=== PATIENT | male | born 1945 | race Two or more races ===

== ENCOUNTER → 2018-04-25 | Day surgery (SDC) | payer MEDICARE, OTHER ==
[~2018-04-25] MED LIST: ASPI81TA59 PO; ATORVASTATIN CA80 MG PO; BUDE10.2 IH; CARV6.252 PO; INSU100V13 SQ; IV RINGERS,LACTATED 1000ML 1,000 ML IV SCH; METF500T16 PO; MONT10TA9 PO; PROPOFOL 20 ML IV ONE; VENTOLIN HFA18 GM INH
--- NOTE | 2018-04-25 09:15 | PDOC1 ---
HISTORY & PHYSICAL H&P Larry Gutierrez. 1945 04/05/2018 01:40 PM 08/15 [facility] OUR PATIENTS COME FIRST [address] [place] [address]. [phone] Patient: Larry Gutierrez Date of : 1945 Date: 04/05/2018 1:40 PM Visit Type: Office Visit This 73 year old male presents for Anemia. History of Present Illness: 1. Anemia Type of anemia was acquired for deficiency anemia (iron deficient). Pertinent negatives include abdominal pain, anorexia, black tarry stools, bleeding gums, constipation, diarrhea, nausea, vomiting and weight loss. Additional information : Has low serum iron, and also has low mcv and hgb is around 9.8. PROBLEM LIST: Problem Description Onset Date Chronic Clinical Status Notes Obesity 06/29/2010 Y Mapped from [facility] Chronic Conditions table on 03/04/2014 by the ICD9 to SNOMED Bulk Mapping Utility. The mapped diagnosis code was Obesity, Unsp, 278.00, added by Marisabel Souza, with responsible provider Marisabel Souza. Onset date 06/29/2010; last addressed on 08/18/2012. Asthma 06/29/2010 Y Mapped from [facility] Chronic Conditions table on 03/04/2014 by the ICD9 to SNOMED Bulk Mapping Utility. The mapped diagnosis code was Asthma NOS, 493.90, added by Mraisabel Souza, with responsible provider Marisabel Souza. Onset date 06/29/2010; last addressed on 11/30/2013. Sleep apnea 06/29/2010 Y Mapped from [facility] Chronic Conditions table on 2013 by the ICD9 to SNOMED Bulk Mapping Utility. The mapped diagnosis code was Sleep Apnea, 780.57, added by Marisabel Souza, with responsible provider Marisabel Souza. Onset date 06/29/2010; last addressed on 11/13/2012. Hyperlipidemia 06/29/2010 Y Mapped from [facility] Chronic Conditions table on 2013 by the ICD9 to SNOMED Bulk Mapping Utility. The mapped diagnosis code was Hyperlipidemia NEC/NOS, 272.4, added by Marisabel Souza, with responsible provider Marisabel Souza. Onset date 06/29/2010; last addressed on 11/30/2013. Benign essential hypertension 06/29/2010 Y Mapped from [facility] Chronic Conditions table on 03/04/2014 by the ICD9 to SNOMED Bulk Mapping Utility. The mapped diagnosis code was Benign Hypertension, 401.1, added by Marisabel Souza, with responsible provider Marisabel Souza. Onset date 06/29/2010; last addressed on . Gastro-esophageal reflux disease with esophagitis 06/29/2010 Y Mapped from [facility] Chronic Conditions table on 03/04/2014 by the ICD9 to SNOMED Bulk Mapping Utility. The mapped diagnosis code was Reflux esophagitis, 530.11, added by Yadira Shepherd, with responsible provider . Onset date 06/29/2010; last addressed on 11/30/2013. Allergic rhinitis 06/29/2010 Y Mapped from [facility] Chronic Conditions table on by the ICD9 to SNOMED Bulk Mapping Utility. The mapped diagnosis code was Allergic rhinitis, cause unspecified, 477.9, added by Yadira Shepherd, with responsible provider . Onset date 06/29/2010; last addressed on 2013. Left lower quadrant pain 11/05/2015 Diverticulitis of large intestine without perforation or abscess without bleeding 11/05/2015 Acute diverticulitis 11/05/2015 Medicare annual wellness visit, initial 11/05/2015 Y Chronic midline low back pain without sciatica 04/05/2016 Coronary artery disease involving [place] coronary artery of [place] heart without angina pectoris 05/26/2015 Y Type II diabetes mellitus well controlled 06/29/2010 Y Mapped from [facility] Chronic Conditions table on 09/27/2014 by Salomón Coleman. The mapped diagnosis code was Diabetes Mellitus, Type II Contr,250.00, added by Marisabel Souza , with responsible provider Marisabel Souza. Onset date 06/29/2010; last addressed on . PAST MEDICAL/SURGICAL HISTORY (Detailed) Disease/disorder Onset Date Management Date Comments Hand surgery Hernia repair Tonsillectomy Allergies Asthma Bronchitis Diabetes GERD Hyperlipidemia Hypertension Obesity Sleep apnea C-PAP machine Family History (Detailed) Relationship Family Member Name Age at Condition Onset Age Cause of Father N CAD, DM, HTN N Mother N Coronary artery disease N Social History: (Detailed) The patient is right-handed. Preferred language is Polish. MARITAL STATUS/FAMILY/SOCIAL SUPPORT Currently . CHILDREN Has children: Tobacco use status: Never smoked tobacco. Smoking status: Never smoker. TOBACCO/VAPING EXPOSURE No passive smoke exposure. ALCOHOL There is no history of alcohol use. LIFESTYLE Moderate activity level. Never exercises. DIET vegetarian. HOME ENVIRONMENT/SAFETY The home has smoke detectors. Carbon monoxide detector at home. Uses seat belts. Medications (active prior to today) Medication Name Sig Description Start Date Stop Date Refilled Rx Elsewhere Fish Oil 1,000 mg capsule take by mouth twice daily // Y Aspir-81 81 mg tablet,delayed release take 1 tablet by oral route every day N LEVEMIR FLEXTOUCH 100UNIT/ML SOPN INJECT 15 UNITS UNDER THE SKIN IN THE MORNING 07/11/2017 07/11/2017 N atorvastatin 80 mg tablet take 1 tablet by oral route every day at bedtime 10/27/2017 N carvedilol 6.25 mg tablet take 1 tablet (6.25MG) by oral route 2 times every day with food 10/27/2017 10/27/2017 N pantoprazole 40 mg tablet,delayed release take 1 tab po qd for stomach 201710/27/2017 N Senna-S 8.6 mg-50 mg tablet take 2 tablet by oral route every day 10/27/2017 10/27/2017 N Symbicort 160 mcg-4.5 mcg/actuation HFA aerosol inhaler inhale 2 puff by inhalation route 2 times every day in the morning and evening.Rinse mouth after use. 10/27/2017 10/27/2017 N Zyrtec 10 mg tablet take 1 tablet by ORAL route every day at bedtime 201710/27/2017 N Flonase Allergy Relief 50 mcg/actuation nasal spray,suspension inhale 2 spray by intranasal route every day in each nostril 10/27/2017 N prednisone 10 mg tablet 3 daily in AM for 3 days,2 For 3days,1 for 3 days 2017 N METFORMIN HCL 500MG TABS TAKE ONE TABLET BY MOUTH TWICE A DAY WITH MORNING AND EVENING MEALS 11/22/2017 11/22/2017 N Ventolin HFA 90 mcg/actuation aerosol inhaler inhale 2 puff by inhalation route every 6 hours needed 11/25/2017 N BD PEN NEEDLE REZA 32G X 4 MM MISC USE WITH LANTUS SOLOSTAR ONCE DAILY 201701/24/2018 N SINGULAIR 10MG TABS TAKE ONE TABLET BY MOUTH EVERY DAY IN THE EVENING 201702/27/2018 N tizanidine 4 mg tablet take 1 tablet by oral route at bedtime as needed. 2017 N diclofenac 1 % topical gel apply (2G) by topical route 3 times every day to the affected area(s) 03/17/2018 N tramadol 50 mg tablet take 1 tablet by oral route every 6 hours as needed 03/1703/17/2018 N Medication Reconciliation Medications reconciled today. Medication Reviewed Adherence Medication Name Sig Desc Elsewhere Status taking as directed Fish Oil 1,000 mg capsule take by mouth twice daily Y Verified taking as directed Aspir-81 81 mg tablet,delayed release take 1 tablet by oral route every day N Verified taking as directed LEVEMIR FLEXTOUCH 100UNIT/ML SOPN INJECT 15 UNITS UNDER THE SKIN IN THE MORNING N Verified taking as directed carvedilol 6.25 mg tablet take 1 tablet (6.25MG) by oral route 2 times every day with food N Verified taking as directed atorvastatin 80 mg tablet take 1 tablet by oral route every day at bedtime N Verified taking as directed pantoprazole 40 mg tablet,delayed release take 1 tab po qd for stomach N Verified taking as directed Senna-S 8.6 mg-50 mg tablet take 2 tablet by oral route every day N Verified taking as directed Symbicort 160 mcg-4.5 mcg/actuation HFA aerosol inhaler inhale 2 puff by inhalation route 2 times every day in the morning and evening.Rinse mouth after use. N Verified taking as directed Zyrtec 10 mg tablet take 1 tablet by ORAL route every day at bedtime N Verified taking as directed Flonase Allergy Relief 50 mcg/actuation nasal spray, suspension inhale 2 spray by intranasal route every day in each nostril N Verified taking as directed METFORMIN HCL 500MG TABS TAKE ONE TABLET BY MOUTH TWICE A DAY WITH MORNING AND EVENING MEALS N Verified taking as directed prednisone 10 mg tablet 3 daily in AM for 3 days,2 For 3days, 1 for 3 days N Verified taking as directed Ventolin HFA 90 mcg/actuation aerosol inhaler inhale 2 puff by inhalation route every 6 hours needed N Verified taking as directed BD PEN NEEDLE REZA 32G X 4 MM MISC USE WITH LANTUS SOLOSTAR ONCE DAILY N Verified taking as directed SINGULAIR 10MG TABS TAKE ONE TABLET BY MOUTH EVERY DAY IN THE EVENING N Verified taking as directed diclofenac 1 % topical gel apply (2G) by topical route 3 times every day to the affected area(s) N Verified taking as directed tizanidine 4 mg tablet take 1 tablet by oral route at bedtime as needed. N Verified taking as directed tramadol 50 mg tablet take 1 tablet by oral route every 6 hours as needed N Verified taking as directed cyanocobalamin (vit B-12) 1,000 mcg/mL injection solution inject 1 milliliter by intramuscular route every month N Verified taking as directed gabapentin 300 mg capsule take 1 capsule (300MG) by oral route at HS N Verified taking as directed ferrous sulfate 325 mg (65 mg iron) tablet take 1 tablet by ORAL route every day N Verified Medications (Added, Continued or Stopped today) Start Date Medication Directions PRN Status PRN Reason Instruction Stop Date 11/30/2013 Aspir-81 81 mg tablet,delayed release take 1 tablet by oral route every day N 10/27/2017 atorvastatin 80 mg tablet take 1 tablet by oral route every day at bedtime N 01/24/2018 BD PEN NEEDLE REZA 32G X 4 MM MISC USE WITH LANTUS SOLOSTAR ONCE DAILY N 10/27/2017 carvedilol 6.25 mg tablet take 1 tablet (6.25MG) by oral route 2 times every day with food N 04/05/2018 cyanocobalamin (vit B-12) 1,000 mcg/mL injection solution inject 1 milliliter by intramuscular route every month N 03/17/2018 diclofenac 1 % topical gel apply (2G) by topical route 3 times every day to the affected area(s) N 04/05/2018 ferrous sulfate 325 mg (65 mg iron) tablet take 1 tablet by ORAL route every day N Fish Oil 1,000 mg capsule take by mouth twice daily N 10/27/2017 Flonase Allergy Relief 50 mcg/actuation nasal spray,suspension inhale 2 spray by intranasal route every day in each nostril N 04/05/2018 gabapentin 300 mg capsule take 1 capsule (300MG) by oral route at HS N 07/11/2017 LEVEMIR FLEXTOUCH 100UNIT/ML SOPN INJECT 15 UNITS UNDER THE SKIN IN THE MORNING N 11/22/2017 METFORMIN HCL 500MG TABS TAKE ONE TABLET BY MOUTH TWICE A DAY WITH MORNING AND EVENING MEALS N 10/27/2017 pantoprazole 40 mg tablet,delayed release take 1 tab po qd for stomach N 10/27/2017 prednisone 10 mg tablet 3 daily in AM for 3 days,2 For 3days,1 for 3 days N Call patient when ready. 10/27/2017 Senna-S 8.6 mg-50 mg tablet take 2 tablet by oral route every day N 02/27/2018 SINGULAIR 10MG TABS TAKE ONE TABLET BY MOUTH EVERY DAY IN THE EVENING N 10/27/2017 Symbicort 160 mcg-4.5 mcg/actuation HFA aerosol inhaler inhale 2 puff by inhalation route 2 times every day in the morning and evening.Rinse mouth after use. N 03/17/2018 tizanidine 4 mg tablet take 1 tablet by oral route at bedtime as needed. N 03/17/2018 tramadol 50 mg tablet take 1 tablet by oral route every 6 hours as needed N 11/25/2017 Ventolin HFA 90 mcg/actuation aerosol inhaler inhale 2 puff by inhalation route every 6 hours needed N 10/27/2017 Zyrtec 10 mg tablet take 1 tablet by ORAL route every day at bedtime N Allergies: Ingredient Reaction (Severity) Medication Name Comment NO KNOWN ALLERGIES ORDERS: Status Lab Order Time Frame Comments scheduled Office visit 7 Days scheduled Office visit 6 Months scheduled Office visit 7 Days scheduled Office visit 84 Days ordered CBC with Diff ordered CMP ordered CPK ordered HEMOGLOBIN A1C ordered LIPID PANEL ordered MICROALBUMIN ordered PSA ordered T4 FREE ordered TSH scheduled Office visit 84 Days ordered follow-up visit 12 Weeks 12 Weeks ordered Lipid Panel -today ordered Hepatic Function Panel -today ordered follow-up visit 4 Weeks 4 Weeks ordered Referral: [facility] [phone]. Evaluate and treat. [facility] [id number] [place] [address] , FAX [phone] ordered follow-up visit 6 Weeks 6 Weeks ordered follow-up visit 1 Week 1 Week ordered CBC w/diff -today ordered Influenza A Ag, EIA -today ordered Hemoglobin A1c -today ordered CMP -today ordered Microalb/Creat Ratio, [facility] -today ordered Lipid Panel -today ordered CPK -today ordered follow-up visit 2 Weeks 2 Weeks ordered CBC w/diff -today ordered CMP panel -today ordered Amylase - ordered Lipase -today ordered follow-up visit 4 Weeks 4 Weeks ordered CMP - ordered CBC w/diff -today ordered follow-up visit 6 Months 6 Months ordered Hemoglobin A1c -today ordered CMP - ordered Microalb/Creat Ratio, [facility] - ordered CBC w/diff - ordered Lipid Panel -today ordered CPK -today ordered TSH - ordered Free T4 -today ordered Vitamin D, 25-Hydroxy -today ordered Hemoglobin A1c - ordered CMP - ordered Microalb/Creat Ratio, [facility] - ordered CBC w/diff - ordered Lipid Panel -today ordered CPK -today ordered follow-up visit 3 Months 3 Months ordered TSH - ordered Free T4 -today ordered Vitamin D, 25-Hydroxy - ordered Hemoglobin A1c - ordered CMP - ordered Microalb/Creat Ratio, [facility] - ordered CBC w/diff - ordered Lipid Panel -today ordered CPK -today ordered follow-up visit 6 Months 6 Months ordered follow-up visit 4 Weeks 4 Weeks ordered follow-up visit with Alex Souza in 2 Weeks in 2 Weeks ordered follow-up visit with Alex Souza upon completion of work-up upon completion of work-up ordered follow-up visit 3 Months 3 Months ordered Hemoglobin A1c - ordered CMP - ordered Microalb/Creat Ratio, [facility] - ordered CBC w/diff - ordered Lipid Panel -today ordered CPK -today ordered follow-up visit 3 Months 3 Months ordered Hemoglobin A1c -today ordered follow-up visit 3 Months 3 Months ordered Hemoglobin A1c - ordered CMP - ordered Microalb/Creat Ratio, [facility] - ordered CBC w/diff - ordered Lipid Panel -today ordered CPK - ordered TSH - ordered follow-up visit 1 Week 1 Week ordered CBC w/diff - ordered Influenza A+B Ag, EIA - ordered follow-up visit 1 Month 1 Month ordered Hemoglobin A1c - ordered CMP - ordered Microalb/Creat Ratio, [facility] - ordered CBC w/diff - ordered Lipid Panel -today ordered CPK -today ordered follow-up visit 3 Months 3 Months ordered follow-up visit 3 Months 3 Months ordered Hemoglobin A1c - ordered CMP - ordered Microalb/Creat Ratio, [facility] Ur -today ordered CBC w/diff -today ordered Lipid Panel -today ordered CPK -today ordered TSH -today ordered Hemoglobin A1c -today ordered CMP -today ordered Microalb/Creat Ratio, [facility] -today ordered CBC w/diff -today ordered Lipid Panel -today ordered CPK -today ordered follow-up visit 3 Weeks 3 Weeks ordered TSH -today ordered follow-up visit 3 Weeks 3 Weeks ordered EGD -today ordered follow-up visit with Alex Souza MD upon completion of work-up upon completion of work-up System Neg/Pos Details Constitutional Negative Chills, Fever, Malaise and Weight loss. ENMT Negative Bleeding gums and Sore throat. Eyes Negative Double vision. Respiratory Negative Dyspnea and Wheezing. Cardio Negative Chest pain and Irregular heartbeat/palpitations. GI Positive See HPI. GI Negative Abdominal pain, Anorexia, Black tarry stools, Constipation, Diarrhea , Nausea, See HPI and Vomiting. Negative Dysuria and Hematuria. Endocrine Negative Cold intolerance and Heat intolerance. Psych Negative Anxiety. Integumentary Negative Hives and Rash. MS Negative Joint pain. Chava/Lymph Negative Easy bleeding and Easy bruising. Allergic/Immuno Negative Food allergies. Vital Signs Time BP mm/Hg Pulse /min Resp /min Temp F Ht ft Ht in Ht cm Wt lb Wt kg BMI kg/ m2 BSA m2 O2 Sat% 12:52 PM 120/80 80 16 98.2 5.0 3.60 161.54 175.00 79.379 30.42 1.89 95 Measured By Time Measured by 12:52 PM Vanessa Swygert PHYSICAL EXAM: Exam Findings Details Constitutional Normal Well developed. Eyes Normal Conjunctiva - Right: Normal, Left: Normal. Sclera - Right: Normal, Left: Normal. Nasopharynx Normal Lips/teeth/gums - Normal. Neck Exam Normal Inspection - Normal. Thyroid gland - Normal. Respiratory Normal Inspection - Normal. Auscultation - Normal. Cardiovascular Normal Regular rate and rhythm. No murmurs, gallops, or rubs. Abdomen Normal Inspection - Normal. Anterior palpation - No guarding. No abdominal tenderness. No hepatic enlargement. No spleen enlargement. No hernia. No ascites. Skin Normal Inspection - Normal. Extremity Normal No edema. Psychiatric Normal Orientation - Oriented to time, place, person & situation. Appropriate mood and affect. Assessment/Plan # Detail Type Description 1. Assessment Iron deficiency anemia due to chronic blood loss (D50.0). Patient Plan schedule EGD at Plan Orders Further diagnostic evaluations ordered today include(s) EGD to be performed today. He is to schedule a follow-up visit with Alex Souza MD upon completion of work-up. Co-Sign Orders Order Ordering Provider Cosigned Name Cosigned Date Cosigner Comments EGD Alex Souza 04/05/2018 follow-up visit with Alex Souza MD upon completion of work-up Alex Souza 04/05/2018 Provider: Alex Souza MD 04/05/2018 1:06 PM Malini Giraldo MD, [facility]; Kedar Ureña MD Internal Medicine; Rosenda Bethea MD, Internal Medicine; Marisabel Souza MD Internal Medicine; Alex Souza MD, Gastroenterology; Noel Gustafson MD, Rheumatology, J. DallasIzaiah SLAUGHTER ------ 04/25/18 Patient seen and examined. No change in H&P. ALEX SOUZA MD Apr 25, 2018 09:15
[2018-04-25 11:21] VITALS: BP 157/71
--- NOTE | 2018-04-26 14:09 | PATHOLOGY ---
[facility] Accession Number: [id number] . 01 Material submitted: . DUODENUM BIOPSY . 01 Clinical history: . Anemia . 02 Diagnosis: Duodenal biopsy: - No significant pathologic abnormalities. [facility]/04/26/2018 . 02 Comment: Sections of the duodenal biopsy reveal segments of small intestine mucosa. Where best oriented, the mucosal villi appear normal. There are no sprue-like changes or significant inflammatory changes. (JPM:[facility] 04/26/2018) . 02 Electronically signed: . Abran Toribio MD, Pathologist NPI- [id number] . 01 Gross description: . Received in formalin labeled "Mitha, Jayantilal, duodenum BX," are 3 segments of teixeira soft tissue measuring 0.9 x 0.6 x 0.2 cm in aggregate dimensions and ranging from 0.2 to 0.3 cm in maximum dimension. The specimen is submitted entirely in cassette A1. ([facility]; 04/25/2018) TOB/TOB . 02 Pathologist provided ICD-10: D50.9 . 02 CPT . 810478 Specimen Comment: A courtesy copy of this report has been sent to Specimen Comment: [phone], . Specimen Comment: Report sent to Performed at: 01 [facility] [address], [place], [place] [id number] MD Baudilio Holden MD Phone: [phone] Performed at: 02 [facility] [address] [place], [place] [id number] MD Abran Toribio MD Phone: [phone]
== END | disposition home or self-care (01) ==
LOC: SURG 09:02
PROVIDERS: ATTEND Internal Medicine Gastroenterology
DX: D50.0 Iron deficiency anemia secondary to blood loss (chronic) (principal); I10 Essential (primary) hypertension; K21.9 Gastro-esophageal reflux disease without esophagitis; I25.10 Atherosclerotic heart disease of native coronary artery without angina pectoris; J45.909 Unspecified asthma, uncomplicated; E66.9 Obesity, unspecified; G47.30 Sleep apnea, unspecified; E78.5 Hyperlipidemia, unspecified; E11.9 Type 2 diabetes mellitus without complications; Z98.890 Other specified postprocedural states; Z82.49 Family history of ischemic heart disease and other diseases of the circulatory system; Z83.3 Family history of diabetes mellitus; Z79.899 Other long term (current) drug therapy; Z79.82 Long term (current) use of aspirin
CPT/HCPCS: 43239; 82962; 88305; J2704

== ENCOUNTER 2021-02-08 12:23 | Emergency (ER) | payer MEDICARE, OTHER ==
[~2021-02-08] VITALS: Ht 157.5 cm; Wt 80.0 kg
[~2021-02-08 12:23] MED LIST changes: +CARV6.2511 PO; -CARV6.252 PO; -IV RINGERS,LACTATED 1000ML 1,000 ML IV SCH; +MONT10TA49 PO; -MONT10TA9 PO; -PROPOFOL 20 ML IV ONE
--- NOTE | 2021-02-08 13:19 | RAD ---
INDICATION: Reason: SHOULDER PAIN, FALL / Spl. Instructions: / History: COMPARISON: None. IMPRESSION: Right shoulder: 2 views obtained. No evidence of dislocation. There is a lucency at the right proxima l humerus which can be seen with an essentially nondisplaced fracture. This extends through the neck and into the humeral head. Electronically signed by: Kelvin Finch MD (02/08/2021 1:17 PM) [id number]
[2021-02-08] MEDS ORDERED: LIDOCAINE 1% Multi-Dose 20 ML VIAL. INJ ONE (13:30)
[2021-02-08] MEDS ORDERED: DIPH,PERTUSS(ACELL),TET VAC/PF 0.5 ML SYRINGE. VAX IM ONE (13:30)
--- NOTE | 2021-02-08 13:56 | RAD ---
EXAM: Head CT without contrast; maxillofacial bone CT without contrast; cervical spine CT without con trast. HISTORY: Fall. Pain. Headache. TECHNIQUE: Computed tomographic images of the head, maxillofacial bones and cervical spine were obtai teresita without contrast. *One or more of the following individualized dose reduction techniques were utilized for this examina tion: 1. Automated exposure control. 2. Adjustment of the mA and/or kV according to patient size. 3. Use of iterative reconstruction technique. COMPARISON: None. FINDINGS: Head: There is no acute hemorrhage. There is no mass effect or midline shift. There is no hydrocephal us. There is cerebral atrophy. There is decreased attenuation within the cerebral white matter, likel y due to chronic small vessel disease. This is advanced for patient age. There is also nonspecific de creased aeration within the basal ganglia which may be due to chronic infarction. No mass is seen. Maxillofacial bones: There is evidence of lens surgery. No orbital mass is seen. There is opacificati on of the left frontal sinus likely due to chronic sinusitis. There is a left maxillary sinus mucous retention cyst and focal mucosal thickening involving the left ethmoid sinus. There is a bone island within the inferior right frontal bone. There is leftward nasal septal deviation. The ostiomeatal uni ts are patent. There is right temporomandibular joint space narrowing with subchondral sclerosis due to osteoarthritis. Cervical spine: There is cervical kyphosis, likely positional or degenerative in etiology. There is d egenerative endplate remodeling with disc space narrowing and osteophytosis primarily at C5-C6. There is no fracture or suspicious osseous lesion. The combination of degenerative changes results in mild right foraminal stenosis at C2-C3, normal left foraminal stenosis at C3-C4, mild right and moderate left foraminal and mild to moderate central canal stenosis at C5-C6, and minimal bilateral foraminal stenosis at C6-C7. IMPRESSION: 1. No acute intracranial finding or evidence of acute cervical spine or maxillofacial bone trauma. 2. Bilateral cerebral white matter changes, likely due to chronic small vessel disease. There is also decreased attenuation within the basal ganglia due to chronic small vessel disease or chronic infarc ts. 3. Paranasal sinus disease and nasal septal deviation, described above. 4. Mild right temporomandibular joint osteoarthritis. 5. Degenerative change involving the cervical spine, primarily at C5-C6. This results in stenosis at the aforementioned levels. Electronically signed by: Wendy Shaw MD (02/08/2021 1:53 PM) [id number]
[2021-02-08 14:00] VITALS: BP 164/75
[2021-02-08] MEDS ORDERED: HYDR-2759 PO (14:45)
--- NOTE | 2021-02-08 14:46 | PHYS DOC ---
Past Medical History Past Medical History: Diabetes-Type II, Hypertension Past Surgical History: Other Additional Past Surgical Histo: KIDNEY STONE, CARDIAN STENTS Smoking Status: Never Smoker Alcohol Use: None General Adult EDM: Chief Complaint: MECHANICAL FALL HPI: HPI: Patient is a 75-year-old male who presented to ER today after he fell at home. Patient was walking in the kitchen, he slipped on some water on the floor fell forward hit his chin on the floor and hit right shoulder on the floor. Patient denies loss of consciousness. Patient is not on blood thinners. Patient complains of facial pain, headache, right shoulder pain. Patient denies any chest pain, no back pain, no lower extremity pain or wrist or hand pain. Patient sustained a laceration to his chin area, he is not up-to-date on his vaccination status. Patient said he is able to open and close his mouth without any problem. Patient walked in here with his son. Review of Systems: Review of Systems: Constitutional: Denies fever or chills. [] Eyes: Denies change in visual acuity. [] HENT: Denies nasal congestion or sore throat. [] Respiratory: Denies cough or shortness of breath. [] Cardiovascular: Denies chest pain or edema. [] GI: Denies abdominal pain, nausea, vomiting, bloody stools or diarrhea. [] : Denies dysuria. [] Musculoskeletal: Denies back pain or joint pain. [] Integument: Denies rash. [] Neurologic: Denies headache, focal weakness or sensory changes. [] Endocrine: Denies polyuria or polydipsia. [] Lymphatic: Denies swollen glands. [] Psychiatric: Denies depression or anxiety. [] Heart Score: C/O Chest Pain: N/A Risk Factors: Risk Factors: DM, Current or recent (<one month) smoker, HTN, HLP, family history of CAD, obesity. Risk Scores: Score 0 - 3: 2.5% MACE over next 6 weeks - Discharge Home Score 4 - 6: 20.3% MACE over next 6 weeks - Admit for Clinical Observation Score 7 - 10: 72.7% MACE over next 6 weeks - Early Invasive Strategies Current Medications: Current Medications Medications (Trade) Dose Ordered Sig/Stephy Start Time Stop Time Status Last Admin Dose Admin Diphtheria/ Tetanus/Acell Pertussis (ADACEL TDap SYRINGE) 0.5 ml ONCE ONCE 02/08/21 13:30 02/08/21 13:31 DC 02/08/21 13:51 0.5 ML Lidocaine HCl (Lidocaine 1% 20ml Vial) 20 ml 1X ONCE 02/08/21 13:30 02/08/21 13:31 DC 02/08/21 13:48 20 ML Allergies: Allergies: Allergies Coded Allergies Type Severity Reaction Last Updated Verified No Known Drug Allergies 04/25/18 No Physical Exam: PE: Constitutional: Well developed, well nourished, no acute distress, non-toxic appearance. [] HENT: Normocephalic, atraumatic, bilateral external ears normal, oropharynx moist, no oral exudates, nose normal. 3 cm laceration on the chin area not through and through, no oral mucosal injury. No trismus. Eyes: PERRLA, EOMI, conjunctiva normal, no discharge. [] Neck: Normal range of motion, no tenderness, supple, no stridor. [] Cardiovascular:Heart rate regular rhythm, no murmur [] Lungs & Thorax: Bilateral breath sounds clear to auscultation [] Abdomen: Bowel sounds normal, soft, no tenderness, no masses, no pulsatile masses. [] Skin: Warm, dry, no erythema, no rash. [] Back: No tenderness, no CVA tenderness. [] Extremities: Right shoulder tender to palpation, there is full range of motion, there is no tenderness to palpation on the right elbow or right wrist area. No tenderness to palpation on the pelvic or hip area Neurologic: Alert and oriented X 3, normal motor function, normal sensory function, no focal deficits noted. [] Psychologic: Affect normal, judgement normal, mood normal. [] Current Patient Data: Vital Signs: Vital Signs Date Time Temp Pulse Resp B/P (MAP) Pulse Ox O2 Delivery O2 Flow Rate FiO2 02/08/21 12:30 98.7 82 16 149/82 (104) 96 Room Air 98.7 EKG: EKG: [] Radiology/Procedures: Radiology/Procedures: [][facility] [address] [place] [address] IMAGING REPORT Signed PATIENT: SHELLEY MCALLISTER HACCOUNT: [id number] : 1945 LOCATION: ER AGE: 75 SEX: M EXAM STATUS: REG ER ORD. PHYSICIAN: CARLINE AMEZQUITA DO REASON: SHOULDER PAIN, FALL PROCEDURE: SHOULDER 2+V RIGHT INDICATION: Reason: SHOULDER PAIN, FALL / Spl. Instructions: / History: COMPARISON: None. IMPRESSION: Right shoulder: 2 views obtained. No evidence of dislocation. There is a lucency at the right proximal humerus which can be seen with an essentially nondisplaced fracture. This extends through the neck and into the humeral head. Electronically signed by: Mady Carmona MD (02/08/2021 1:17 PM) [id number] DICTATED and SIGNED BY: MADY CARMONA MD DATE: 02/08/21 [id number] [facility] [address] [place] [address] IMAGING REPORT Signed [facility]: [id number] 1945 LOCATION: ER AGE: 75 SEX: M EXAM STATUS: REG ER ORD. PHYSICIAN: CARLINE AMEZQUITA DO REASON: fell, neck pain, headache PROCEDURE: CT HEAD AND CERVICAL SPINE WO EXAM: Head CT without contrast; maxillofacial bone CT without contrast; cervical spine CT without contrast. HISTORY: Fall. Pain. Headache. TECHNIQUE: Computed tomographic images of the head, maxillofacial bones and cervical spine were obtained without contrast. *One or more of the following individualized dose reduction techniques were utilized for this examination: 1. Automated exposure control. 2. Adjustment of the mA and/or kV according to patient size. 3. Use of iterative reconstruction technique. COMPARISON: None. FINDINGS: Head: There is no acute hemorrhage. There is no mass effect or midline shift. There is no hydrocephalus. There is cerebral atrophy. There is decreased attenuation within the cerebral white matter, likely due to chronic small vessel disease. This is advanced for patient age. There is also nonspecific decreased aeration within the basal ganglia which may be due to chronic infarction. No mass is seen. Maxillofacial bones: There is evidence of lens surgery. No orbital mass is seen. There is opacification of the left frontal sinus likely due to chronic sinusitis. There is a left maxillary sinus mucous retention cyst and focal mucosal thickening involving the left ethmoid sinus. There is a bone island within the inferior right frontal bone. There is leftward nasal septal deviation. The ostiomeatal units are patent. There is right temporomandibular joint space narrowing with subchondral sclerosis due to osteoarthritis. Cervical spine: There is cervical kyphosis, likely positional or degenerative in etiology. There is degenerative endplate remodeling with disc space narrowing and osteophytosis primarily at C5-C6. There is no fracture or suspicious osseous lesion. The combination of degenerative changes results in mild right foraminal stenosis at C2-C3, normal left foraminal stenosis at C3-C4, mild right and moderate left foraminal and mild to moderate central canal stenosis at C5-C6, and minimal bilateral foraminal stenosis at C6-C7. IMPRESSION: 1. No acute intracranial finding or evidence of acute cervical spine or maxillofacial bone trauma. 2. Bilateral cerebral white matter changes, likely due to chronic small vessel disease. There is also decreased attenuation within the basal ganglia due to chronic small vessel disease or chronic infarcts. 3. Paranasal sinus disease and nasal septal deviation, described above. 4. Mild right temporomandibular joint osteoarthritis. 5. Degenerative change involving the cervical spine, primarily at C5-C6. This results in stenosis at the aforementioned levels. Electronically signed by: Wendy Lewis MD (02/08/2021 1:53 PM) [id number] DICTATED and SIGNED BY: WENDY LEWIS MD DATE: 02/08/21 [id number] Laceration Procedure:Chin Laceration. Location: chin Anesthesia: 20 ml of 1% plain lidocaine total lenght of laceration: 3 cm Number of sutures: 7 on the skin, 3 sutures, 4-0-vicryl subcutaneous. Suture Material: 5-0-Prolene Technique: simple interupted method. Patient tolerated procedure well. The wound was dressed with: Course & Med Decision Making: Course & Med Decision Making Pertinent Labs and Imaging studies reviewed. (See chart for details) Patient is a 75-year-old male who presented to ER today after he fell at home. Patient was walking in the kitchen, he slipped on some water on the floor fell forward hit his chin on the floor and hit right shoulder on the floor. Patient denies loss of consciousness. Patient is not on blood thinners. Patient complains of facial pain, headache, right shoulder pain. Patient denies any chest pain, no back pain, no lower extremity pain or wrist or hand pain. Patient sustained a laceration to his chin area, he is not up-to-date on his vaccination status. Patient said he is able to open and close his mouth without any problem. Patient walked in here with his son. X-ray of his right shoulder show nondisplaced fracture of the right humeral head. Discussed with orthopedic surgeon Dr. Pam Reilly, who recommended to put a shoulder immobilizer on that side, discharge home, follow-up with him in the clinic next week. Shoulder immobilizer was placed on the right shoulder by RN CT scan of head head, C-spine, facial bones did not show any fracture or dislocation, no intracranial hemorrhage. The laceration of the chin was repaired in the ER by this physician . Patient was given a tetanus booster in the ER. Patient was discharged home in stable condition , he was instructed follow-up with his family physician in 7 days for suture removal. Dragon Disclaimer: Dragon Disclaimer: This electronic medical record was generated, in whole or in part, using a voice recognition dictation system. Departure Departure Impression: Primary Impression: Facial laceration Additional Impression: Proximal humerus fracture Disposition: 01 HOME / SELF CARE / HOMELESS Condition: STABLE Referrals: JABIER HONG MD (PCP) Please follow up with your family doctor for sutures removal in 7 days PAM REILLY MD Please call this orthopedic surgeon for follow up next week about your right shoulder fracture Patient Instructions: Facial Laceration, Humerus Fracture, Treated with Immobilization, [id number] Additional Instructions: Thank you for visiting our Emergency Department. We appreciate you trusting us with your care. If any additional problems come up don't hesitate to return to visit us. Please follow up with your primary care provider so they can plan additional care if needed and know about the problem that you had. If symptoms worsen come back to the Emergency Department. Any concerning symptoms that start such as chest pain, shortness of air, weakness or numbness on one side of the body, running high fevers or any other concerning symptoms return to the ER. Scripts Hydrocodone/Acetaminophen (Hydrocodone-Acetamin 5-325 mg) 1 Each Tablet 1 EACH PO Q6HRS PRN for PAIN, #15 TAB Prov: CARLINE AMEZQUITA DO 02/08/21 CARLINE AMEZQUITA DO Feb 08, 2021 14:45
== END 2021-02-08 15:28 | disposition home or self-care (01) ==
LOC: ER 12:23
DX: S42.291A Other displaced fracture of upper end of right humerus, initial encounter for closed fracture (principal); S01.81XA Laceration without foreign body of other part of head, initial encounter; E11.9 Type 2 diabetes mellitus without complications; I10 Essential (primary) hypertension; R51.9 Headache, unspecified; M54.2 Cervicalgia; Z95.5 Presence of coronary angioplasty implant and graft; W01.198A Fall on same level from slipping, tripping and stumbling with subsequent striking against other object, initial encounter; Y93.01 Activity, walking, marching and hiking; Y92.098 Other place in other non-institutional residence as the place of occurrence of the external cause; Y99.8 Other external cause status
CPT/HCPCS: 12013; 29105; 70450; 70486; 72125; 73030; 90471; 90715; 99285; A4565; J3490; 12011

== ENCOUNTER 2021-02-19 14:30 | Emergency (ER) | payer MEDICARE ==
[~2021-02-19] VITALS: Ht 160 cm; Wt 71.0 kg
[~2021-02-19 14:30] MED LIST changes: +HYDR-2759 PO
[2021-02-19 14:54] VITALS: BP 137/71
--- NOTE | 2021-02-19 15:10 | PHYS DOC ---
Past Medical History Past Medical History: Diabetes-Type II, Hypertension (JAIRONAYLIN Peralta ORE WASHER) Past Surgical History: Other Additional Past Surgical Histo: KIDNEY STONE, CARDIAN STENTS (RIMAAYLIN CASTILLO ORE WASHER) Smoking Status: Never Smoker Alcohol Use: None (ALIZAAYLIN ORE WASHER) General Adult EDM: Chief Complaint: SUTURE/STAPLE REMOVAL HPI: HPI: Patient is a 75 year old male who presents to the ED today for suture removal from the chin. Sutures have been in for 10 days. (ALIZAAYLIN Patti ORE WASHER) Review of Systems: Review of Systems: Constitutional: Denies fever or chills. [] Musculoskeletal: Denies back pain or joint pain. [] Integument: Visit for suture removal Neurologic: Denies headache, focal weakness or sensory changes. [] Psychiatric: Denies depression or anxiety. [] (RIMARONYAYLIN Peralta ORE WASHER) Heart Score: C/O Chest Pain: N/A Risk Factors: Risk Factors: DM, Current or recent (<one month) smoker, HTN, HLP, family history of CAD, obesity. Risk Scores: Score 0 - 3: 2.5% MACE over next 6 weeks - Discharge Home Score 4 - 6: 20.3% MACE over next 6 weeks - Admit for Clinical Observation Score 7 - 10: 72.7% MACE over next 6 weeks - Early Invasive Strategies (AYLIN ABRAMS ORE WASHER) Allergies: Allergies: Allergies Coded Allergies Type Severity Reaction Last Updated Verified No Known Drug Allergies 04/25/18 No (JAIRONAYLIN Peralta ORE WASHER) Physical Exam: PE: Constitutional: Well developed, well nourished, no acute distress, non-toxic appearance. [] Skin: Chin with a well approximated laceration with 6 interrupted sutures. No signs of infection Back: No tenderness, no CVA tenderness. [] Extremities: No tenderness, no cyanosis, no clubbing, ROM intact, no edema. [] Neurologic: Alert and oriented X 3, normal motor function, normal sensory function, no focal deficits noted. [] Psychologic: Affect normal, judgement normal, mood normal. [] (AYLIN ABRAMS ORE WASHER) Current Patient Data: Vital Signs: Vital Signs Date Time Temp Pulse Resp B/P (MAP) Pulse Ox O2 Delivery O2 Flow Rate FiO2 02/19/21 14:54 98.0 98 16 137/71 (104) 95 Room Air 98.0 (AYLIN ABRAMS Patti SLAUGHTER) EKG: EKG: [] (RIMAAYLIN CASTILLO Patti SLAUGHTER) Radiology/Procedures: Radiology/Procedures: [] (AYLIN ABRAMS Patti SLAUGHTER) Course & Med Decision Making: Course & Med Decision Making Pertinent Labs and Imaging studies reviewed. (See chart for details) This is a 75-year-old male patient presenting to the ED today for suture removal from the chin. Sutures have been in for 10 days. Sutures were removed by me, no signs of infection to the area. Discharged home (AYLIN ABRAMS APRN) Course & Med Decision Making I was attending physician in ER at time of patient visit. COLLEGE ADMISSIONS COUNSELOR saw, worked up, and created treatment plan independently despite me being present and available in the department. Patient left ER prior to me reviewing case with COLLEGE ADMISSIONS COUNSELOR. Electronically signed, Tong Quintanilla DO (TONG QUINTANILLA DO) Maddy Disclaimer: Maddy Disclaimer: This electronic medical record was generated, in whole or in part, using a voice recognition dictation system. (AYLIN ABRAMS APRN) Departure Departure Impression: Primary Impression: Visit for suture removal Disposition: HOME / SELF CARE / HOMELESS Condition: STABLE Referrals: JABIER HONG MD (PCP) follow up with your doctor in 1 week Patient Instructions: Suture Removal Additional Instructions: Keep the area clean and dry. Follow-up with your doctor in 1 to 2 weeks as needed. AYLIN ABRAMS APRN Feb 19, 2021 15:10 TONG QUINTANILLA DO Mar 15, 2021 11:04
== END 2021-02-19 15:17 | disposition home or self-care (01) ==
LOC: ER 14:30
DX: S01.81XD Laceration without foreign body of other part of head, subsequent encounter (principal); E11.9 Type 2 diabetes mellitus without complications; I10 Essential (primary) hypertension; Z95.5 Presence of coronary angioplasty implant and graft; X58.XXXD Exposure to other specified factors, subsequent encounter
CPT/HCPCS: 99281